=== PATIENT | male | born 1990 | race African-American/Black ===

== ENCOUNTER 2019-04-09 23:20 | Emergency (ER) | payer MEDICAID ==
[~2019-04-09] VITALS: Ht 177.8 cm; Wt 63.5 kg
--- NOTE | 2019-04-09 23:38 | NUR ---
ED Nurse Note: Patient presents with complaints of dizziness and near syncopal episode yesterday, he appears visibly shakey but reports acute onset.
[2019-04-09] MEDS ORDERED: NKM (23:40)
[2019-04-10] VITALS: BP 113/76
--- NOTE | 2019-04-10 00:20 | Emergency Room Report ---
History of Present Illness General Chief Complaint: Dizziness Source: Patient Present Illness HPI Disclaimer: Please note that this report is being documented using DRAGON technology. This can lead to erroneous entry secondary to incorrect interpretation by the dictating instrument. HPI: 28-year-old otherwise healthy male presents for evaluation of a syncopal episode and lightheadedness. Patient was at [employer]ianism yesterday which he states he was standing for a prolonged amount of time during the service. He had a witnessed syncopal episode with only a momentary loss of consciousness. He was lowered to the ground by bystanders. There is no head injury. He regained consciousness immediately and has been feeling lightheaded ever since. Denies vertiginous symptoms. States he was feeling lightheaded earlier in the week as well and the school nurse told him he was slightly hypoglycemic. States he has been eating and drinking at baseline. Denies any recent fevers, chills, shortness of breath, abdominal pain, nausea, vomiting. He did note some chest pain prior to arrival while he was laying at rest but only happened as a sharp pain on the right side of the chest and only momentary. He is chest pain-free at this time. Denies family history of cardiomyopathy, enlarged heart, arrhythmias or other sudden in young family members. PMH: Denies PSH: Denies Allergies: Denies Social Hx: Denies drug, tobacco or alcohol use Allergies: Coded Allergies: No Known Allergies (Unverified , 04/09/19) Nursing Documentation-PMH Past Medical History: No Stated History Review of Systems All Other Systems: negative except mentioned in HPI Physical Exam Vital Signs Date Time Temp Pulse Resp B/P (MAP) Pulse Ox O2 Delivery O2 Flow Rate FiO2 04/09/19 23:34 97.9 78 15 113/76 (88) 98 General: Awake and alert, no acute distress HEENT: NC/AT. EOMI. PERRLA. Anicteric sclera. Moist mucous membranes Neck: Supple, trachea midline Chest Wall: Mild chest pain with palpation of the right and left chest wall. No deformity, no crepitus Cardiovascular: RRR. S1 and S2 normal. No murmur appreciated Resp: Normal work of breathing. No cough, wheezing or crackles appreciated Abdomen: Abdomen is soft, nondistended. Nontender Skin: Intact. No abrasions, laceration or rash over the exposed skin MSK: Normal tone and bulk. Moving all extremities. No obvious deformity. Neuro: Awake and alert. Mentating appropriately. Medical Decision Making Diagnostic Impression: Primary Impression: Syncope Additional Impression: Lightheaded ER Course 28-year-old male presents for evaluation after syncopal episode yesterday and persistent lightheadedness. Differential includes was not limited to dehydration, orthostatic hypotension, vasovagal syncope, viral illness, arrhythmia, ACS. Overall, he is well-appearing, stable vital signs and no acute distress. Will check orthostatic vital signs, given IV fluid bolus, check labs including cardiac enzymes, EKG and chest x-ray. Laboratory Tests Test 04/10/19 00:49 White Blood Count 4.8 K/UL (4.8-10.8) Red Blood Count 5.25 M/UL (4.70-6.10) Hemoglobin 13.8 G/DL (14.2-18.0) L Hematocrit 42.4 % (42.0-52.0) Mean Corpuscular Volume 81 FL (80-99) Mean Corpuscular Hemoglobin 26.2 PG (27.0-31.0) L Mean Corpuscular Hemoglobin Concent 32.4 G/DL (32.0-36.0) Red Cell Distribution Width 12.7 % (11.6-14.8) Platelet Count 185 K/UL (150-450) Mean Platelet Volume 7.4 FL (6.5-10.1) Neutrophils (%) (Auto) % (45.0-75.0) Lymphocytes (%) (Auto) % (20.0-45.0) Monocytes (%) (Auto) % (1.0-10.0) Eosinophils (%) (Auto) % (0.0-3.0) Basophils (%) (Auto) % (0.0-2.0) Differential Total Cells Counted 100 Neutrophils % (Manual) 28 % (45-75) L Lymphocytes % (Manual) 58 % (20-45) H Monocytes % (Manual) 12 % (1-10) H Eosinophils % (Manual) 1 % (0-3) Basophils % (Manual) 1 % (0-2) Band Neutrophils 0 % (0-8) Platelet Estimate Adequate Platelet Morphology Normal Red Blood Cell Morphology Normal Sodium Level 142 MMOL/L (136-145) Potassium Level 4.0 MMOL/L (3.5-5.1) Chloride Level 107 MMOL/L (98-107) Carbon Dioxide Level 30 MMOL/L (21-32) Anion Gap 5 mmol/L (5-15) Blood Urea Nitrogen 7 mg/dL (7-18) Creatinine 1.0 MG/DL (0.55-1.30) Estimate Glomerular Filtration Rate > 60 mL/min (>60) Glucose Level 85 MG/DL (74-106) Calcium Level 9.1 MG/DL (8.5-10.1) Total Bilirubin 0.3 MG/DL (0.2-1.0) Aspartate Amino Transferase (AST) 16 U/L (15-37) Alanine Aminotransferase (ALT) 19 U/L (12-78) Alkaline Phosphatase 59 U/L (46-116) Troponin I 0.000 ng/mL (0.000-0.056) Total Protein 7.4 G/DL (6.4-8.2) Albumin 3.7 G/DL (3.4-5.0) Globulin 3.7 g/dL Albumin/Globulin Ratio 1.0 (1.0-2.7) EKG Diagnostic Results EKG Time: 00:25 Rate: normal Rhythm: NSR ST Segments: no acute changes Other Impression Sinus rhythm, normal axis, normal intervals, small diffuse ST segment changes consistent with early repolarization. No reciprocal depressions. Some characteristics of LVH though not consistent in all leads. Rhythm Strip Diag. Results Rhythm Strip Time: 00:25 Rate: 60s Rhythm: NSR, no PVC's, no ectopy Chest X-Ray Diagnostic Results Chest X-Ray Diagnostic Results : Chest X-Ray Ordered: Yes # of Views/Limited/Complete: 1 View Indication: Chest Pain EP Interpretation: Yes Interpretation: no consolidation, no effusion, no pneumothorax, no acute cardiopulmonary disease Impression: No acute disease - Normal cardiac silhouette Reevaluation Time: 01:45 Last Vital Signs Date Time Temp Pulse Resp B/P (MAP) Pulse Ox O2 Delivery O2 Flow Rate FiO2 04/10/19 00:00 78 15 04/10/19 00:00 97.9 113/76 98 Reevaluation Impression Troponins are negative, labs are otherwise within normal limits. EKG shows signs of early repolarization but no evidence of left ventricular strain or other major pathology. Chest x-ray shows a normal cardiac silhouette. The patient feels well and orthostatic vital signs are negative. May be dehydration , early viral syndrome or previous orthostatic hypotension. Discussed getting up and down slowly from a seated position as well as following up with his PMD to discuss this emergency department visit for syncope and for recurrent lightheadedness. He should have a repeat EKG to make sure that this is in fact early repolarization. I discussed this with his family and with the patient. He will be discharged home for outpatient follow-up. They understand and agree with the treatment plan. All questions were answered. Disposition: HOME, SELF-CARE Condition: Stable Referrals: NON PHYSICIAN (PCP) Julian Velázquez MD Apr 10, 2019 00:20
--- NOTE | 2019-04-10 00:49 | NUR ---
ED Nurse Note: Patient tolerated IV start and blood draw well, blood sent to lab, will continue to monitor.
[2019-04-10 01:08] VITALS: BP_SYST 111; BP_SYST 117; BP_SYST 118; BP_DIAS 73; BP_DIAS 80; BP_DIAS 81
[2019-04-10 01:08] LABS: HEMATOCRIT 42.4 % (42.0-52.0); HEMOGLOBIN 13.8 G/DL (14.2-18.0); MEAN CORPUSCULAR VOLUME 81 FL (80-99); PLATELET COUNT 185 K/UL (150-450); RED BLOOD COUNT 5.25 M/UL (4.70-6.10); RED CELL DISTRIBUTION WIDTH 12.7 % (11.6-14.8); WHITE BLOOD COUNT 4.8 K/UL (4.8-10.8)
[2019-04-10 01:18] LABS: ANION GAP 5 mmol/L (5-15); BLOOD UREA NITROGEN 7 mg/dL (7-18); CALCIUM 9.1 MG/DL (8.5-10.1); CARBON DIOXIDE 30 MMOL/L (21-32); CHLORIDE 107 MMOL/L (98-107); SODIUM 142 MMOL/L (136-145)
[2019-04-10 01:24] LABS: ALANINE AMINOTRANSFERASE 19 U/L (12-78); ALBUMIN 3.7 G/DL (3.4-5.0); ALKALINE PHOSPHATASE 59 U/L (46-116); ASPARTATE AMINO TRANSFERASE 16 U/L (15-37); BILIRUBIN,TOTAL 0.3 MG/DL (0.2-1.0)
[2019-04-10 01:46] VITALS: BP 117/80
--- NOTE | 2019-04-10 01:46 | NUR ---
ED Nurse Note: Patient tolerated IV fluids well and without complication. Patient cleared for discharge by ERMD. Patient verbalized understanding of discharge instructions. IV removed, ID band removed. PAtient departed with all belongings accompanied by his mom and brother.
--- NOTE | 2019-04-10 01:52 | Diagnostic Imaging Report ---
EXAM: XR Chest, 1 View CLINICAL HISTORY: CP TECHNIQUE: Frontal view of the chest. COMPARISON: No relevant prior studies available. FINDINGS: Lungs: Unremarkable. No consolidation. Pleural space: Unremarkable. No pneumothorax. Heart: Unremarkable. No cardiomegaly. Mediastinum: Unremarkable. Bones joints: Unremarkable. IMPRESSION: No acute cardiopulmonary abnormality.
--- NOTE | 2019-04-13 14:25 | Cardiology Report ---
APPROVED REPORT EKG Measurement Heart [id number] Normal sinus rhythm ST elevation, probably due to early repolarization Borderline ECG
== END 2019-04-10 01:46 | disposition home or self-care (01) ==
LOC: EMR 23:43
DX: R55 Syncope and collapse (principal); R07.9 Chest pain, unspecified
CPT/HCPCS: 36415; 71045; 80053; 84484; 85007; 85025; 93005; 96360; Z7502; 99284